=== PATIENT | female | born 1995 | race Caucasian/White ===

== ENCOUNTER 2018-07-14 08:46 | Day surgery (SDC) | payer OTHER, SELFPAY ==
[2018-07-11 12:29] VITALS: BMI 26.9
[2018-07-14] VITALS (7 sets, daily range): BP systolic 94–110; BP diastolic 61–81; PULSE 66–95; RESP 10–16; TEMP 36.2–36.9; O2SAT 96–100; BMI 26.7
[2018-07-14] MEDS: LACTATED RINGERS 1,000 ML 42 ML IV (09:16)
--- NOTE | 2018-07-14 10:32 | PM.PREOP ---
Pre-operative Note Interval Note Pre-op Check: Yes History & Physical Reviewed by Physician Changes: No
[2018-07-14] MEDS: CEFAZOLIN 2 GM/100 ML FROZ.PIGGY IV (10:36)
--- NOTE | 2018-07-14 10:44 | SUR.OPER ---
Supine on padded OR bed, head on pillow, arms secured on padded arm boards at <90 degrees abduction, legs uncrossed, safety belt at thigh, tape over blanket over left lower leg.
[2018-07-14] MEDS: NEOMYCIN/POLYMYXIN/BACITRA UD OINT 1 EACH TOP (10:59)
[2018-07-14] MEDS: LIDOCAINE 2% INJ (11:15)
[2018-07-14] MEDS: BUPIVACAINE 0.5% (PF) VIAL 30 ML INJ (11:16)
--- NOTE | 2018-07-14 11:49 | P.OP_ITS ---
Operative Date/Time/Diagnoses Date of procedure: 07/14/18 Time of procedure: 11:45 Pre-op diagnosis: Right great toenail ingrown with granulomatous tissue Post-op diagnosis: same Procedure & Clinicians Procedure: Right great toenail avulsion and excision with cauterization of granuloma tissue Same procedure as scheduled: Yes Indications: Painful ongoing ingrowing nail with development of granulomatous tissue failed to alleviate pain or reduce with conservative measures. She wished to have surgical intervention at this time. Surgeon: Nena Anderson Click Yes if Unassisted: Yes Anesthesia Type: General Operative Notes Closure Type: not applicable Specimen(s): none sent Estimated Blood Loss (mL): 1 Blood products transfused: none Tourniquet time (min): 4 Procedure in detail: Patient was brought to the operating room and placed on the operative table in a supine position after general induction of general anesthesia the foot was prepped and draped in the usual aseptic manner after a check of anesthesia the [place] drain was placed about the right great toe using a [place] elevator the hallux nail was removed in total. On the nail border the granuloma was noted and able to be reduced sharply and then a curette was used to verify its complete reduction. Cautery was used to reduce it as well. The area was irrigated with copious amounts of normal sterile saline. Dressing was placed consisting of triple antibiotic ointment Xeroform 4 x 4 and [place] as well as stockinette and her postsurgical shoe. Complications: none Condition: stable Disposition: PACU Plan for aftercare: Following a period of postoperative monitoring the patient will be able to be discharged home on written and oral postoperative instructions including keeping the dressing dry until tomorrow morning where her 1st postoperative soak will be. She is given dressing instructions as well as a small dressing packed use and she is able to bear weight on this but to tolerance. Will see her in approximately 7-10 days for follow-up.
== END 2018-07-14 12:08 | disposition home or self-care (01) ==
PROVIDERS: PCP Family Medicine; Visit Provider Podiatrist
PROC: 0HTRXZZ Resection of Toe Nail, External Approach (ICD-10-PCS; CPT 11730; principal; 2018-07-14 10:45)
DX: L60.0 Ingrowing nail (principal); L92.9 Granulomatous disorder of the skin and subcutaneous tissue, unspecified; B07.0 Plantar wart; M79.674 Pain in right toe(s)
CPT/HCPCS: 11730; 17250; J0690; J1100; J2405; J2704; J3010